=== PATIENT | female | born 1985 | race Caucasian/White ===

== ENCOUNTER 2017-12-04 18:33 | Inpatient (IN) | payer OTHER ==
[2017-12-04 19:31] LABS: Basophils # (A) 0.1 k/uL (0-0.2); Basophils % (A) 0 %; Eosinophils # (A) 0.2 k/uL (0-0.7); Eosinophils % (A) 2 %; HCT 38.3 % (34.0-46.0); HGB 12.9 gm/dL (11.4-16.0); Lymphocytes # (A) 2.1 k/uL (1.0-4.8); Lymphocytes % (A) 16 %; MCH 28.6 pg (25.0-35.0); MCHC 33.7 g/dL (31.0-37.0); MCV 84.8 fL (80.0-100.0); Mean Platelet Volume 7.8; Monocytes # (A) 0.8 k/uL (0-1.0); Monocytes % (A) 6 %; Neutrophils # (A) 9.8 k/uL (1.3-7.7); Neutrophils % (A) 74 %; Platelet Count 336 k/uL (150-450); RBC 4.51 m/uL (3.80-5.40); RDW 14.1 % (11.5-15.5); WBC 13.2 k/uL (3.8-10.6)
[2017-12-04 19:51] LABS: ALT 44 U/L (9-52); AST 35 U/L (14-36); Albumin 4.3 g/dL (3.5-5.0); Alkaline Phosphatase 90 U/L (38-126); Amylase 50 U/L (30-110); Anion Gap 11 mmol/L; Blood Urea Nitrogen 13 mg/dL (7-17); Calcium 9.9 mg/dL (8.4-10.2); Carbon Dioxide 29 mmol/L (22-30); Chloride 100 mmol/L (98-107); Glucose 90 mg/dL (74-99); Lipase 61 U/L (23-300); Potassium 4.1 mmol/L (3.5-5.1); Sodium 140 mmol/L (137-145); Total Bilirubin 0.6 mg/dL (0.2-1.3); Total Protein 7.8 g/dL (6.3-8.2)
[2017-12-04] MEDS ORDERED: ONDANSETRON 4 MG/2 ML VIAL IVP STA (20:16)
[2017-12-04] MEDS ORDERED: SODIUM CHLORIDE 0.9% 1,000 ML IV STA (20:16)
[2017-12-04] MEDS ORDERED: SODIUM CHLORIDE 0.9% 500 ML IV STA (20:16)
[2017-12-04] MEDS ORDERED: PANTOPRAZOLE 40 MG/10 ML VIAL IVP STA (20:16)
--- NOTE | 2017-12-04 20:23 | ED ---
General Adult HPI - General Source: patient, family, RN notes reviewed Mode of arrival: ambulatory Limitations: no limitations <William Reese - Last Filed: 12/04/17 21:44> <Zach Ordonez - Last Filed: 12/05/17 01:38> - General Chief complaint: Abdominal Pain Stated complaint: Stomach pain Time Seen by Provider: 12/04/17 20:02 - History of Present Illness Initial comments: Chief complaint and history of present illness is a 32-year-old female with complaint of pain started 3 days ago in the middle of her back, went up slightly but then came forward to epigastric region. Ongoing for 3 days similar now as it was before. Not significantly worse. She reports she had the same problem proximal to 5 months ago came in the middle of the night awakened her. It lasted 5 hours and went away. She does report she's had nausea and vomiting more dry heaves but no diarrhea. Patient denies any heavy lifting or injuries. Bending forward in palpating the epigastric region with increased discomfort. Denies change in color of stool or urine. (William Reese) - Related Data Home Medications Medication Instructions Recorded Confirmed Orphenadrine Citrate 100 mg PO BID PRN 12/04/17 12/04/17 Allergies Allergy/AdvReac Type Severity Reaction Status Date / Time No Known Allergies Allergy Verified 12/04/17 20:48 Review of Systems ROS Other: All systems not noted in ROS Statement are negative. <William Reese - Last Filed: 12/04/17 21:44> ROS Other: All systems not noted in ROS Statement are negative. <Zach Ordonez - Last Filed: 12/05/17 01:38> ROS Statement: Those systems with pertinent positive or pertinent negative responses have been documented in the HPI. review of systems no headache or visual acuity changes no neck pain, deep breathing causes discomfort in the epigastric region. Discomfort to the middle of the back but not with palpation. No rashes noted in that area. She had dry heaves nausea vomiting 2 days ago. Decreased appetite. No neuro deficits. All systems are reviewed. Past medical problems as noted above one similar episode 5 months ago lasting only 5 hours and then subsided without treatment or going to the doctor. The patient's surgeries include wisdom teeth only. Family history cancers include throat and skin. Patient denies ALLERGIES. Occasional cigarettes occasional alcohol but none lately. states she had a normal menstrual cycle last month does not think she is . (William Reese) Past Medical History Past Medical History: No Reported History History of Any Multi-Drug Resistant Organisms: None Reported Past Surgical History: No Surgical Hx Reported Past Psychological History: No Psychological Hx Reported Smoking Status: Current some day smoker Past Alcohol Use History: None Reported Past Drug Use History: None Reported <William Reese - Last Filed: 12/04/17 21:44> General Exam Limitations: no limitations <William Reese - Last Filed: 12/04/17 21:44> <Zach Ordonez - Last Filed: 12/05/17 01:38> - General Exam Comments Initial Comments: General: The patient is awake and alert, complains of epigastric pain and mild right upper quadrant pain with deep palpation across through to the back. Vital signs his temperature 99.0 pulse 94 respiratory rate 20 pulse ox 99% room air blood pressure 123/83 Eye: Pupils are equal, round and reactive to light, extra-ocular movements are intact ; there is normal conjunctiva bilaterally. No signs of icterus. Ears, nose, mouth and throat: There are moist mucous membranes and no oral lesions. Neck: The neck is supple, there is no tenderness , no anterior cervical lymphadenopathy, thyroid not enlarged. Cardiovascular: There is a regular rate and rhythm. No murmur, rub or gallop is appreciated. Respiratory: Lungs are clear to auscultation, respirations are non-labored, breath sounds are equal. No wheezes, stridor, rales, or rhonchi.deep breathing causes mild discomfort in the epigastric region. Gastrointestinal: Soft, non-distended, tender with palpation over the epigastric region mildly positive Croft sign with palpation during deep breathing to the right upper quadrant. No organomegaly.. There is no rebound or guarding present. no CVA tenderness but there is discomfort to the lower thoracic spine area but not with palpation of the spine.. Bowel sounds are unremarkable. Back: There is no tenderness to palpation in the midline. There is no obvious deformity. No rashes noted. Musculoskeletal: Normal ROM, no tenderness, Neurological: no complaints of weakness or dizziness no complaints of any neuro deficits. Skin: Skin is warm and dry and no rashes or lesions are noted. (William Reese) Vital Signs 03/03/1812/04/17 12/05/17 19:02 23:20 01:11 Temperature 99.0 F Pulse Rate 94 88 83 Respiratory 20 18 Rate Blood Pressure 123/83 109/69 130/80 O2 Sat by Pulse 99 98 99 Oximetry Medical Decision Making - Lab Data Result diagrams: 12/04/17 19:11 12/04/17 19:11 <William Reese - Last Filed: 12/04/17 21:44> - Lab Data Result diagrams: 12/04/17 19:11 12/04/17 19:11 <Zach Ordonez - Last Filed: 12/05/17 01:38> - Medical Decision Making Medical decision making; to 32-year-old female here with her family. The patient reports that for 3 days she's been having pain that started in her back lower thoracic and radiates through to the front. This happened one time before , 5 months ago but lasted only 5 hours. Patient's denying any injuries. This is associated with nausea vomiting but no diarrhea. Pain increased with palpation of the epigastric region.Labs show white count 13 hemoglobin 12.9 hematocrit 38. Potassium 4.1 with a BUN 13 creatinine 0.7 with a GFR greater than 60. Glucose 90. Amylase lipase normal. test negative. UA clean no signs of infection. we discussed a CT of the thoracic and abdominal aorta because of her symptoms of discomfort in the back coming through to the front and all labs being normal with no evidence of blood in the urine or any changes in the liver enzymes or amylase lipase. If the CT of the aorta the chest and abdomen is within normal limits and an ultrasound of the right upper quadrant will be requested. Final disposition by Dr. Ordonez (William Reese) - Lab Data Lab Results 12/04/17 12/04/17 12/04/17 Range/Units 19:11 19:11 20:15 WBC 13.2 H (3.8-10.6) k/uL RBC 4.51 (3.80-5.40) m/uL Hgb 12.9 (11.4-16.0) gm/dL Hct 38.3 (34.0-46.0) % MCV 84.8 (80.0-100.0) fL MCH 28.6 (25.0-35.0) pg MCHC 33.7 (31.0-37.0) g/dL RDW 14.1 (11.5-15.5) % Plt Count 336 (150-450) k/uL Neutrophils % 74 % Lymphocytes % 16 % Monocytes % 6 % Eosinophils % 2 % Basophils % 0 % Neutrophils # 9.8 H (1.3-7.7) k/uL Lymphocytes # 2.1 (1.0-4.8) k/uL Monocytes # 0.8 (0-1.0) k/uL Eosinophils # 0.2 (0-0.7) k/uL Basophils # 0.1 (0-0.2) k/uL Sodium 140 (137-145) mmol/L Potassium 4.1 (3.5-5.1) mmol/L Chloride 100 (98-107) mmol/L Carbon Dioxide 29 (22-30) mmol/L Anion Gap 11 mmol/L BUN 13 (7-17) mg/dL Creatinine 0.70 (0.52-1.04) mg/dL Est GFR (CKD-EPI)AfAm >90 (>60 ml/min/1.73 sqM) Est GFR (CKD-EPI)NonAf >90 (>60 ml/min/1.73 sqM) Glucose 90 (74-99) mg/dL Plasma Lactic Acid Benito (0.7-2.0) mmol/L Calcium 9.9 (8.4-10.2) mg/dL Total Bilirubin 0.6 (0.2-1.3) mg/dL AST 35 (14-36) U/L ALT 44 (9-52) U/L Alkaline Phosphatase 90 (38-126) U/L Total Protein 7.8 (6.3-8.2) g/dL Albumin 4.3 (3.5-5.0) g/dL Amylase 50 (30-110) U/L Lipase 61 (23-300) U/L Urine Color Colorless Urine Appearance Clear (Clear) Urine pH 5.5 (5.0-8.0) Ur Specific [place] 1.002 (1.001-1.035) Urine Protein Negative (Negative) Urine Glucose (UA) Negative (Negative) Urine Ketones Negative (Negative) Urine Blood Negative (Negative) Urine Nitrite Negative (Negative) Urine Bilirubin Negative (Negative) Urine Urobilinogen <2.0 (<2.0) mg/dL Ur Leukocyte Esterase Negative (Negative) Urine HCG, Qual (Not Detectd) 12/04/17 12/04/17 Range/Units 20:15 20:35 WBC (3.8-10.6) k/uL RBC (3.80-5.40) m/uL Hgb (11.4-16.0) gm/dL Hct (34.0-46.0) % MCV (80.0-100.0) fL MCH (25.0-35.0) pg MCHC (31.0-37.0) g/dL RDW (11.5-15.5) % Plt Count (150-450) k/uL Neutrophils % % Lymphocytes % % Monocytes % % Eosinophils % % Basophils % % Neutrophils # (1.3-7.7) k/uL Lymphocytes # (1.0-4.8) k/uL Monocytes # (0-1.0) k/uL Eosinophils # (0-0.7) k/uL Basophils # (0-0.2) k/uL Sodium (137-145) mmol/L Potassium (3.5-5.1) mmol/L Chloride (98-107) mmol/L Carbon Dioxide (22-30) mmol/L Anion Gap mmol/L BUN (7-17) mg/dL Creatinine (0.52-1.04) mg/dL Est GFR (CKD-EPI)AfAm (>60 ml/min/1.73 sqM) Est GFR (CKD-EPI)NonAf (>60 ml/min/1.73 sqM) Glucose (74-99) mg/dL Plasma Lactic Acid Benito 0.8 (0.7-2.0) mmol/L Calcium (8.4-10.2) mg/dL Total Bilirubin (0.2-1.3) mg/dL AST (14-36) U/L ALT (9-52) U/L Alkaline Phosphatase (38-126) U/L Total Protein (6.3-8.2) g/dL Albumin (3.5-5.0) g/dL Amylase (30-110) U/L Lipase (23-300) U/L Urine Color Urine Appearance (Clear) Urine pH (5.0-8.0) Ur Specific [place] (1.001-1.035) Urine Protein (Negative) Urine Glucose (UA) (Negative) Urine Ketones (Negative) Urine Blood (Negative) Urine Nitrite (Negative) Urine Bilirubin (Negative) Urine Urobilinogen (<2.0) mg/dL Ur Leukocyte Esterase (Negative) Urine HCG, Qual Not Detected (Not Detectd) Disposition <William Reese - Last Filed: 12/04/17 21:44> <Zach Ordonez - Last Filed: 12/05/17 01:38> Clinical Impression: Abdominal pain, Symptomatic cholelithiasis Disposition: ADMITTED IP TO THIS [facility] Condition: Fair Referrals: None,Stated [Primary Care Provider] - 1-2 days
[2017-12-04 20:29] LABS: Appearance,Urine Clear (Clear); Bilirubin,Urine Negative (Negative); Blood,Urine Negative (Negative); Color,Urine Colorless; Glucose,Urine (UA) Negative (Negative); Ketones,Urine Negative (Negative); Leukocyte Esterase,Urine Negative (Negative); PH, Urine 5.5 (5.0-8.0); Protein,Urine Negative (Negative); Specific Gravity,Urine 1.002 (1.001-1.035); Urobilinogen,Urine <2.0 mg/dL (<2.0)
[2017-12-04] MEDS ORDERED: RX INFO: IV CONTRAST WAS GIVEN 1 EACH MISC MISCELLANE PRN (21:38)
--- NOTE | 2017-12-04 22:10 | XR ---
EXAMINATION TYPE: XR abdomen 2V DATE OF EXAM: 12/04/2017 COMPARISON: NONE HISTORY: Back pain abdominal pain TECHNIQUE: 3 views FINDINGS: There is no sign of intestinal obstruction or pneumoperitoneum. Fecal pattern is normal. Th ere is no evidence of a mass. There are no pathologic calcifications over the kidneys. Lung bases are clear. There is no evidence of a mass. IMPRESSION: Nonacute abdomen.
[2017-12-04] MEDS ORDERED: MORPHINE SULFATE 4 MG/ML SYRINGE IV STA (23:00)
--- NOTE | 2017-12-04 23:05 | CT ---
EXAMINATION TYPE: CT angio thoracic/abd aorta DATE OF EXAM: 12/04/2017 COMPARISON: NONE HISTORY: Patient complains of back pain that to epigastric region. CT DLP: 1957 mGycm. Automated Exposure Control for Dose Reduction was Utilized. CONTRAST: CT scan of the thorax, abdomen and pelvis is performed with IV Contrast, patient injected with 100 mL of Omnipaque 350. FINDINGS: There are 3-D post processed images. The noncontrast images show no renal calculus. Gallbladder is large and measures 3.7 cm in diameter. The lungs are clear of infiltrate. There is no pleural effusion. There is no evidence of a pulmonary mass. There is no pericardial effusion. I see no filling defects in the pulmonary arteries. There is no evidence of thoracic aortic aneurysm or dissection. There is no mediastinal adenopathy. There are no hilar masses. spleen pancreas appear normal. Bile ducts are not dilated. Gallbladder is large. There is heterogeneous enhancement within the liver probably due to regional fatty infiltration. There is no adrenal mass. Kidneys show satisfactory contrast opacification. There is no hydronephrosi s. There is no retroperitoneal adenopathy. There is patency of the celiac artery and the superior mes enteric artery. There is bilateral renal artery patency. There is patency of the common internal and external iliac arteries. There is a small amount of free fluid in the cul-de-sac. Bladder distends sm oothly. Uterus is anteverted. I see no bony destructive process. There is no evidence of a pelvic mas s. There is a 2 cm cyst on the right ovary. The appendix is not enlarged. There is a 4 mm appendicoli th. CONCLUSION: Normal CT angiogram of the chest and abdomen. Inhomogeneous enhancement of the liver probably due to fatty infiltration in the posterior right lobe. Right ovarian cyst. Mild free fluid in the cul-de-sac could be physiologic. There is an appendicolith but no other evidence for appendicitis.
--- NOTE | 2017-12-05 00:41 | US ---
EXAMINATION TYPE: US abdomen limited DATE OF EXAM: 12/05/2017 COMPARISON: NONE CLINICAL HISTORY: Pain, attention RUQ. RUQ pain EXAM MEASUREMENTS: Liver Length: 13.8 cm Gallbladder Wall: 0.3 cm CBD: 0.7 cm Right Kidney: 9.6 x 4.1 x 3.9 cm Pancreas: Obscured by bowel gas Liver: Limited due to overlying bowel gas. Images taken appear wnl. Gallbladder: Gallstone seen in neck. Evidence for sonographic Croft's sign: No CBD: Dilated Right Kidney: No hydronephrosis or masses seen Gallstone seen in neck of gallbladder. CBD appears dilated. IMPRESSION: Large gallstone in the gallbladder neck. No dilated ducts. No focal liver defect. Gallbla dder is distended and this could relate to cholecystitis.
[2017-12-05] MEDS ORDERED: NALOXONE 0.4 MG/ML 1 ML VIAL IV PRN (01:35)
[2017-12-05] MEDS ORDERED: MORPHINE SULFATE 4 MG/ML SYRINGE IV PRN (01:35)
[2017-12-05] MEDS ORDERED: ONDANSETRON 4 MG/2 ML VIAL IVP PRN (01:35)
[2017-12-05] MEDS: CEFEPIME 2 GM in SODIUM CHLORIDE 0.9% 50 ML IVPB SCH ×2 (02:19→17:41)
[2017-12-05] MEDS: SODIUM CHLORIDE 0.9% 1,000 ML IV SCH ×3 (02:19→17:39)
[2017-12-05] MEDS: FAMOTIDINE 20 MG/2 ML VIAL IV SCH ×2 (02:20→17:41)
--- NOTE | 2017-12-05 11:26 | P.GSHP ---
History of Present Illness H&P Date: 12/05/17 Chief Complaint: Right upper quadrant pain 32-year-old female presented on the day of admission to the emergency room to be evaluated for upper thoracic chest pain radiating to the epigastric area with a nausea sensation onset Sunday. Patient stated that she did go to [place] emergency room on Sunday to be evaluated for these symptoms. Patient reports in the emergency room they did do abdominal x-rays patient was discharged home. 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 Patient stated that the symptoms initially started 3 days ago in the middle of her back it went up slightly in a radiated to the epigastric area. Patient reports that she had a similar episode 3 to 5 months ago where woke her up in the middle of the night. It lasted about 5 hours and went away on its own. She states this episode pain became more symptomatic came into the emergency room on the to be evaluated for the above-mentioned symptoms. Patient stated that it she bent forward did cause increased epigastric discomfort. Denies any change in the color of the urine or stool. CAT scan of the thorax and abdomen report reviewed [facility] and abdomen. The ultrasound of the abdomen obtained in the emergency room showed a large gallstone in the gallbladder neck. No dilated ducts. No focal liver defect. The gallbladder distended likely related to cholecystitis. Lipase and amylase not elevated liver enzymes were not elevated patient was admitted to the services of the attending. No significant past medical or surgical history - Review of Systems Comment: Essentially unremarkable except as mentioned in the present illness Past Medical History Past Medical History: No Reported History History of Any Multi-Drug Resistant Organisms: None Reported Past Surgical History: No Surgical Hx Reported Additional Past Surgical History / Comment(s): third molar removal. Past Anesthesia/Blood Transfusion Reactions: No Reported Reaction Past Psychological History: No Psychological Hx Reported Smoking Status: Light tobacco smoker Past Alcohol Use History: None Reported Past Drug Use History: None Reported - Past Family History Father Family Medical History: Myocardial Infarction (CT) Medications and Allergies Home Medications Medication Instructions Recorded Confirmed Type Orphenadrine Citrate 100 mg PO BID PRN 12/04/17 12/04/17 History Allergies Allergy/AdvReac Type Severity Reaction Status Date / Time No Known Allergies Allergy Verified 12/04/17 20:48 Surgical - Exam Vital Signs Temp Pulse Resp BP Pulse Ox 99.0 F 94 20 123/83 99 12/04/17 19:02 12/04/17 19:02 12/04/17 19:02 12/04/17 19:02 12/04/17 19:02 GENERAL APPEARANCE: 32-year-old female patient is alert, oriented, in no acute distress. VITAL SIGNS: Reviewed HEENT: Head is normocephalic and atraumatic. Pupils are equal and reactive. The nares are patent. Oropharynx is clear without lesions. NECK: Supple without lymphadenopathy. Traches midline. HEART: S1, S2. Regular rate and rhythm. No murmur noted denying chest pain LUNGS: No crackles or wheezes are heard. On room air no cough ABDOMEN: Soft, mild tenderness epigastric area nondistended with good bowel sounds. No peritoneal signs. No palpable organomegaly or masses. EXTREMITIES: Normal skin color and turgor. No cyanosis, rash, ulceration, clubbing or edema. Radial pedal pulses are 2/4 bilaterally. NEUROLOGICAL: No focal deficits. Strength and sensation are grossly intact. Results - Labs 12/04/17 19:11 12/04/17 19:11 Abnormal Lab Results - Last 24 Hours (Table) 12/04/17 Range/Units 19:11 WBC 13.2 H (3.8-10.6) k/uL Neutrophils # 9.8 H (1.3-7.7) k/uL Microbiology - Last 24 Hours (Table) 12/04/17 20:15 Urine Culture - Preliminary Urine,Voided Diabetes panel 12/04/17 Range/Units 19:11 Sodium 140 (137-145) mmol/L Potassium 4.1 (3.5-5.1) mmol/L Chloride 100 (98-107) mmol/L Carbon Dioxide 29 (22-30) mmol/L BUN 13 (7-17) mg/dL Creatinine 0.70 (0.52-1.04) mg/dL Glucose 90 (74-99) mg/dL Calcium 9.9 (8.4-10.2) mg/dL AST 35 (14-36) U/L ALT 44 (9-52) U/L Alkaline Phosphatase 90 (38-126) U/L Total Protein 7.8 (6.3-8.2) g/dL Albumin 4.3 (3.5-5.0) g/dL Calcium panel 12/04/17 Range/Units 19:11 Calcium 9.9 (8.4-10.2) mg/dL Albumin 4.3 (3.5-5.0) g/dL Pituitary panel 12/04/17 Range/Units 19:11 Sodium 140 (137-145) mmol/L Potassium 4.1 (3.5-5.1) mmol/L Chloride 100 (98-107) mmol/L Carbon Dioxide 29 (22-30) mmol/L BUN 13 (7-17) mg/dL Creatinine 0.70 (0.52-1.04) mg/dL Glucose 90 (74-99) mg/dL Calcium 9.9 (8.4-10.2) mg/dL Adrenal panel 12/04/17 Range/Units 19:11 Sodium 140 (137-145) mmol/L Potassium 4.1 (3.5-5.1) mmol/L Chloride 100 (98-107) mmol/L Carbon Dioxide 29 (22-30) mmol/L BUN 13 (7-17) mg/dL Creatinine 0.70 (0.52-1.04) mg/dL Glucose 90 (74-99) mg/dL Calcium 9.9 (8.4-10.2) mg/dL Total Bilirubin 0.6 (0.2-1.3) mg/dL AST 35 (14-36) U/L ALT 44 (9-52) U/L Alkaline Phosphatase 90 (38-126) U/L Total Protein 7.8 (6.3-8.2) g/dL Albumin 4.3 (3.5-5.0) g/dL Assessment and Plan Assessment: Impression Present on admission upper back thoracic pain radiating to epigastric region with a CT angiogram of the thoracic and abdominal aorta showing a normal CT angiogram Ultrasound of the abdomen report reviewed indicates large gallstone in neck of the gallbladder suspect due to acute cholecystitis present on admission right upper quadrant pain radiating to the epigastric area suspect due to acute cholecystitis Plan Nothing by mouth scheduled today for laparoscopic cholecystectomy Pain control IV fluid for hydration DVT and GI prophylaxis The above impression and plan of care have been discussed and directed by signing physician. Anne Egan nurse practitioner acting as scribe for signing physician.
[2017-12-05] MEDS ORDERED: IV FLUID CONTINUATION 1,000 ML IV ONE ×2 (12:39)
[2017-12-05] MEDS ORDERED: HEPARIN SODIUM,PORCINE 5,000 UNIT/ML 1 ML VIAL SQ ONE (14:37)
[2017-12-05] MEDS ORDERED: DEXAMETHASONE SOD PHOS (MDV) 100 MG/10 ML VIAL ONE (15:17)
[2017-12-05] MEDS ORDERED: KETOROLAC 30 MG/ML 1 ML VIAL ONE (15:17)
[2017-12-05] MEDS ORDERED: fentaNYL (PF) 50 MCG/ML 2 ML AMP ONE (15:17)
[2017-12-05] MEDS ORDERED: SUCCINYLCHOLINE CHLORIDE 100 MG/5 ML SYR IV ONE (15:17)
[2017-12-05] MEDS ORDERED: GLYCOPYRROLATE 0.2 MG/ML 2 ML VIAL ONE (15:17)
[2017-12-05] MEDS ORDERED: MIDAZOLAM 2 MG/2 ML VIAL ONE (15:17)
[2017-12-05] MEDS ORDERED: NEOSTIGMINE 1 MG/ML 10 ML VIAL ONE (15:17)
[2017-12-05] MEDS ORDERED: LIDOCAINE 1% INJ 10MG/ML (20 ML MDV) ONE (15:17)
[2017-12-05] MEDS ORDERED: PROPOFOL 10 MG/ML 20 ML VIAL IV ONE (15:17)
[2017-12-05] MEDS ORDERED: ROCURONIUM BROMIDE 10 MG/ML 10 ML VIAL IV ONE (15:17)
[2017-12-05] MEDS ORDERED: BUPIVACAINE (PF) 0.25% 30 ML VIAL SQ ONE (15:39)
--- NOTE | 2017-12-05 16:23 | P.OP ---
Date of Procedure: 12/05/17 Preoperative Diagnosis: Cholecystitis Postoperative Diagnosis: Acute gangrenous cholecystitis Procedure(s) Performed: Laparoscopic cholecystectomy Anesthesia: STEPHANIE Surgeon: Wayne Lopes Estimated Blood Loss (ml): 5 Pathology: other (Gallbladder) Condition: stable Disposition: PACU Description of Procedure: The patient was placed on the operating table. The patient received a general endotracheal tube anesthesia. The patients abdomen was prepped and draped in the usual sterile fashion. Through an infraumbilical stab incision, the fascia of the anterior abdominal wall was grasped with a pair of Kochers and then the Veress needle was placed in the peritoneal cavity. Position of the Veress needle was confirmed with positive drop test. The abdomen was then insufflated. After adequate insufflation, the 10 mm trocar was placed in the peritoneal cavity. Following this the laparoscope was placed in the peritoneal cavity. The patient was placed in the head-up, right side up position and then a 5 mm trocar was placed in the right lateral and right subcostal position under direct visualization. A 8 mm trocar was placed in the epigastric position. The gallbladder was grasped in the fundus and infundibulum. Traction on the gallbladder was placed in the lateral and the cephalad positions. The triangle of Calot was visualized.. The cystic duct was bluntly dissected until the union of the cystic duct and common bile duct was seen. The cystic duct was then divided and sealed with the Harmonic scissors. A PDS Endoloop was then placed throughout the cystic duct stump. The cystic artery divided and sealed with the Harmonic scissors. The gallbladder was then removed from the liver bed using Harmonic scissors. The gallbladder was then extracted through the epigastric port site. Operative field was checked for any bleeding spots and Harmonic scissors was used to coagulate the liver bed. The abdomen was irrigated. The trocars were removed. The skin was closed using interrupted 3-0 Vicryl suture. Dermabond dressing were applied. The patient tolerated the procedure well.
[2017-12-05] MEDS ORDERED: HYDROcodone/APAP 7.5-325MG 1 EACH TAB PO PRN (18:11)
[2017-12-05 19:00] VITALS: RESP 18
[2017-12-06] MEDS: CEFEPIME 2 GM in SODIUM CHLORIDE 0.9% 50 ML IVPB SCH (04:06)
[2017-12-06] MEDS: FAMOTIDINE 20 MG/2 ML VIAL IV SCH (04:06)
[2017-12-06] MEDS: SODIUM CHLORIDE 0.9% 1,000 ML IV SCH (05:50)
[2017-12-06 07:23] LABS: Basophils % (A) 0 %; Eosinophils % (A) 0 %; HCT 31.9 % (34.0-46.0); HGB 10.3 gm/dL (11.4-16.0); Lymphocytes # (A) 1.1 k/uL (1.0-4.8); Lymphocytes % (A) 10 %; MCH 27.8 pg (25.0-35.0); MCHC 32.3 g/dL (31.0-37.0); MCV 86.1 fL (80.0-100.0); Mean Platelet Volume 7.7; Monocytes # (A) 0.5 k/uL (0-1.0); Monocytes % (A) 5 %; Neutrophils # (A) 9.1 k/uL (1.3-7.7); Neutrophils % (A) 84 %; Platelet Count 281 k/uL (150-450); RDW 13.8 % (11.5-15.5); WBC 10.7 k/uL (3.8-10.6)
[2017-12-06 07:34] LABS: ALT 94 U/L (9-52); AST 80 U/L (14-36); Albumin 3.1 g/dL (3.5-5.0); Alkaline Phosphatase 117 U/L (38-126); Anion Gap 8 mmol/L; Blood Urea Nitrogen 10 mg/dL (7-17); Calcium 8.4 mg/dL (8.4-10.2); Carbon Dioxide 25 mmol/L (22-30); Chloride 106 mmol/L (98-107); Glucose 102 mg/dL (74-99); Potassium 4.2 mmol/L (3.5-5.1); Sodium 139 mmol/L (137-145); Total Bilirubin 0.7 mg/dL (0.2-1.3); Total Protein 5.9 g/dL (6.3-8.2)
[2017-12-06 07:56] VITALS: BP 105/74; PULSE 77; TEMP 98.8
[2017-12-06] MEDS ORDERED: IBUPROFEN 400 MG TAB PO PRN (11:28)
--- NOTE | 2017-12-06 11:46 | P.DS ---
Providers Date of admission: 12/05/17 01:35 Expected date of discharge: 12/06/17 Attending physician: Wayne Lopes Primary care physician: Stated None Hospital Course: 32-year-old female presented on the day of admission to the emergency room to be evaluated for upper thoracic chest pain radiating to the epigastric area with a nausea sensation onset Sunday. Patient stated that she did go to [facility] emergency room on Sunday to be evaluated for these symptoms. Patient reports in the emergency room they did do abdominal x-rays patient was discharged home. 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 Patient stated that the symptoms initially started 3 days ago in the middle of her back it went up slightly in a radiated to the epigastric area. Patient reports that she had a similar episode 3 to 5 months ago where woke her up in the middle of the night. It lasted about 5 hours and went away on its own. She states this episode pain became more symptomatic came into the emergency room on the to be evaluated for the above-mentioned symptoms. Patient stated that it she bent forward did cause increased epigastric discomfort. Denies any change in the color of the urine or stool. CAT scan of the thorax and abdomen report reviewed indicated a normal CT [facility] of the chest and abdomen. The ultrasound of the abdomen obtained in the emergency room showed a large gallstone in the gallbladder neck. No dilated ducts. No focal liver defect. The gallbladder distended likely related to cholecystitis. Lipase and amylase not elevated liver enzymes were not elevated patient was admitted to the services of the attending. Patient underwent laparoscopic cholecystectomy for an acute gangrenous cholecystitis on December 05. Impression Present on admission upper back thoracic pain radiating to epigastric region with a CT angiogram of the thoracic and abdominal aorta showing a normal CT angiogram Ultrasound of the abdomen report reviewed indicates large gallstone in neck of the gallbladder suspect due to acute cholecystitis present on admission right upper quadrant pain radiating to the epigastric area suspect due to acute cholecystitis Postop December 05 laparoscopic cholecystectomy for acute gangrenous cholecystitis The above impression and plan of care have been discussed and directed by signing physician. Anne Egan nurse practitioner acting as scribe for signing physician. Patient Condition at Discharge: Fair Plan - Discharge Summary Discharge Rx Participant: Yes New Discharge Prescriptions: No Action Orphenadrine Citrate 100 mg PO BID PRN PRN Reason: Muscle Spasm Discharge Medication List Orphenadrine Citrate 100 mg PO BID PRN 12/04/17 [History] Follow up Appointment(s)/Referral(s): None,Stated [Primary Care Provider] - 1-2 days Wayne Lopes MD [STAFF PHYSICIAN] - 12/13/17 3:00 pm Activity/Diet/Wound Care/Special Instructions: No tub bath for six weeks. Shower daily. No lifting over 4 pounds for the next 6 weeks. May use ice packs to surgical site. No driving while taking narcotic for pain. Discharge Disposition: HOME SELF-CARE
== END 2017-12-06 12:30 | disposition home or self-care (01) | DRG 419 ==
LOC: EC 18:33 → 6PED 12-05 01:35
PROVIDERS: ADMIT Surgery; ATTEND Surgery
PROC: 0FT44ZZ Resection of Gallbladder, Percutaneous Endoscopic Approach (ICD-10-PCS; principal; 2017-12-05 09:25)
DX: K80.00 Calculus of gallbladder with acute cholecystitis without obstruction (principal); F17.210 Nicotine dependence, cigarettes, uncomplicated
CPT/HCPCS: 36415; 71275; 74019; 75635; 76705; 80053; 81003; 81025; 82150; 83605; 83690; 85025; 87086; 88304; 96361; 96374; 96375; 99285

== ENCOUNTER → 2018-01-15 | Outpatient (CLI) | payer OTHER, BC ==
--- NOTE | 2018-01-15 10:59 | XR ---
EXAMINATION TYPE: XR ankle complete LT DATE OF EXAM: 01/15/2018 CLINICAL HISTORY: Sprain injury August with persistent medial pain. TECHNIQUE: Frontal, lateral and oblique images of the left ankle are obtained. COMPARISON: None. FINDINGS: There is no acute fracture/dislocation evident in the left ankle. The ankle mortise appea rs within normal limits. The overlying soft tissue appears unremarkable. IMPRESSION: There is no acute fracture or dislocation in the left ankle.
--- NOTE | 2018-01-15 11:00 | XR ---
EXAMINATION TYPE: XR chest 2V DATE OF EXAM: 01/15/2018 COMPARISON: CTA aorta December 04, 2017. HISTORY: Chest pain per order. TECHNIQUE: Frontal and lateral views of the chest are obtained. FINDINGS: There is no focal air space opacity, pleural effusion, or pneumothorax seen. The cardiac silhouette size is mildly enlarged currently. The osseous structures are intact. IMPRESSION: Mild cardiomegaly without acute pulmonary process.
== END | disposition home or self-care (01) ==
LOC: RADXRMAIN 10:15
PROVIDERS: ATTEND Family Medicine
DX: I51.7 Cardiomegaly (principal); M25.572 Pain in left ankle and joints of left foot
CPT/HCPCS: 71046

== ENCOUNTER 2018-07-12 19:33 | Emergency (ER) | payer BC, OTHER ==
[2018-07-12] MEDS ORDERED: methylPREDNISolone SOD SUCCI 125 MG/2 ML VIAL IM ONE (20:17)
[2018-07-12] MEDS ORDERED: FAMOTIDINE 20 MG TAB PO STA (20:17)
[2018-07-12 20:44] LABS: Appearance,Urine Clear (Clear); Bilirubin,Urine Negative (Negative); Blood,Urine Negative (Negative); Color,Urine Light Yellow; Glucose,Urine (UA) Negative (Negative); Ketones,Urine Negative (Negative); Leukocyte Esterase,Urine Negative (Negative); Nitrite,Urine Negative (Negative); PH, Urine 5.5 (5.0-8.0); Protein,Urine Negative (Negative); Specific Gravity,Urine 1.007 (1.001-1.035); Urobilinogen,Urine <2.0 mg/dL (<2.0)
--- NOTE | 2018-07-12 20:58 | ED ---
Skin/Abscess/FB HPI - General Chief complaint: Skin/Abscess/Foreign Body Stated complaint: rash Time Seen by Provider: 07/12/18 20:05 Source: patient, RN notes reviewed, old records reviewed Mode of arrival: ambulatory Limitations: no limitations - History of Present Illness Initial comments: 32 year old with 2 days of sporadic rash that is pruritic over multiple areas of her body. Patient reports she will have the rash over her arm, then it goes away, later coming [facility] somewhere else. Denies new exposures. Denies fevers, chills, or other symptoms. Patient reports that she went to [facility], advised her to take benadryl, it goes away for a few hours and then returns. - Related Data Home Medications Medication Instructions Recorded Confirmed diphenhydrAMINE HCL [Benadryl] 25 - 50 mg PO Q6H PRN 07/12/18 07/12/18 Previous Rx's Medication Instructions Recorded Famotidine [Pepcid] 20 mg PO BID #20 tablet 07/12/18 predniSONE 10 mg PO DAILY #15 tab 07/12/18 Allergies Allergy/AdvReac Type Severity Reaction Status Date / Time No Known Allergies Allergy Verified 07/12/18 20:04 Review of Systems ROS Statement: Those systems with pertinent positive or pertinent negative responses have been documented in the HPI. ROS Other: All systems not noted in ROS Statement are negative. Past Medical History Past Medical History: No Reported History History of Any Multi-Drug Resistant Organisms: None Reported Past Surgical History: No Surgical Hx Reported, Cholecystectomy Additional Past Surgical History / Comment(s): third molar removal. Past Anesthesia/Blood Transfusion Reactions: No Reported Reaction Past Psychological History: No Psychological Hx Reported Smoking Status: Light tobacco smoker Past Alcohol Use History: None Reported Past Drug Use History: None Reported - Past Family History Father Family Medical History: Myocardial Infarction ([place]) General Exam - General Exam Comments Initial Comments: 32 year old female, no acute distress. Limitations: no limitations General appearance: alert, in no apparent distress Head exam: Present: atraumatic, normocephalic, normal inspection Eye exam: Present: normal appearance, PERRL, EOMI. Absent: scleral icterus, conjunctival injection, periorbital swelling ENT exam: Present: normal exam, mucous membranes moist Neck exam: Present: normal inspection. Absent: tenderness, meningismus, lymphadenopathy Respiratory exam: Present: normal lung sounds bilaterally. Absent: respiratory distress, wheezes, rales, rhonchi, stridor Cardiovascular Exam: Present: regular rate, normal rhythm, normal heart sounds. Absent: systolic murmur, diastolic murmur, rubs, gallop, clicks Extremities exam: Present: normal inspection, full ROM, normal capillary refill. Absent: tenderness, pedal edema, joint swelling, calf tenderness Back exam: Present: normal inspection Neurological exam: Present: alert, oriented X3, CN II-XII intact Psychiatric exam: Present: normal affect, normal mood Expanded Distribution of rash: generalized Description of rash: Present: macular, purpuic, urticarial 1 - Sporadic urticaria 2 - urticaria 3 - uriticara 4 - Uriticaria Course Vital Signs 07/12/18 07/12/18 19:40 21:08 Temperature 98.4 F 98 F Pulse Rate 113 H 96 Respiratory 20 18 Rate Blood Pressure 125/80 115/72 O2 Sat by Pulse 98 98 Oximetry Medical Decision Making - Medical Decision Making 32 year old female with sporadic urticarial rash. No new exposures. Patient at this time given IM solumedrol. Discussed using antihistamine, pepcid, and steriods. Discussed follow up with PCP. Return parameters discussed. - Lab Data Lab Results 07/12/18 07/12/18 Range/Units 20:20 20:20 Urine Color Light Yellow Urine Appearance Clear (Clear) Urine pH 5.5 (5.0-8.0) Ur Specific [place] 1.007 (1.001-1.035) Urine Protein Negative (Negative) Urine Glucose (UA) Negative (Negative) Urine Ketones Negative (Negative) Urine Blood Negative (Negative) Urine Nitrite Negative (Negative) Urine Bilirubin Negative (Negative) Urine Urobilinogen <2.0 (<2.0) mg/dL Ur Leukocyte Esterase Negative (Negative) Urine HCG, Qual Not Detected (Not Detectd) Disposition Clinical Impression: Urticaria Disposition: HOME SELF-CARE Condition: Good Instructions: Urticaria (ED) Additional Instructions: Patient advised to follow-up with primary care physician. Return to emergency department if any alarming signs or symptoms occur. Take medication as prescribed. Do not do hot baths. Prescriptions: Famotidine [Pepcid] 20 mg PO BID #20 tablet predniSONE 10 mg PO DAILY #15 tab Is patient prescribed a controlled substance at d/c from ED?: No Referrals: None,Stated [Primary Care Provider] - 1-2 days Zamzam Dumont MD [STAFF PHYSICIAN] - 1-2 days Dallas Gordon MD [REFERRING] - 1-2 days Stevie Wharton MD [STAFF PHYSICIAN] - 1-2 days Time of Disposition: 20:55
[2018-07-12 21:10] VITALS: BP 115/72; PULSE 96; RESP 18; TEMP 98
== END 2018-07-12 21:09 | disposition home or self-care (01) ==
LOC: EC 19:33
DX: L50.9 Urticaria, unspecified (principal); F17.200 Nicotine dependence, unspecified, uncomplicated
CPT/HCPCS: 81003; 81025; 99283; 96372; J2930

== ENCOUNTER 2022-04-23 19:00 | Emergency (ER) | payer BC ==
[2022-04-23 19:04] VITALS: BP 114/79; PULSE 70; RESP 16; TEMP 98.3
--- NOTE | 2022-04-23 19:53 | ED ---
General Adult HPI - General Chief complaint: Animal Bite Stated complaint: dog bite Time Seen by Provider: 04/23/22 19:19 Source: patient, RN notes reviewed Mode of arrival: ambulatory Limitations: no limitations - History of Present Illness Initial comments: 36-year-old female presents to the emergency department requesting a repeat shot. Patient states she was bit by a dog yesterday while camping and the dog's experimental machinist was unable to provide documentation that the past had been vaccinated. Patient states she was at urgent care prior to arrival and did receive a prescription for antibiotics which she did fill. Also received a tetanus shot at that time. States she was advised by urgent care and her PCP to come to the emergency department for the rabies vaccine. Denies any other injuries or concerns at this time. - Related Data Home Medications Medication Instructions Recorded Confirmed diphenhydrAMINE HCL [Benadryl] 25 - 50 mg PO Q6H PRN 07/12/18 07/12/18 Previous Rx's Medication Instructions Recorded Famotidine [Pepcid] 20 mg PO BID #20 tablet 07/12/18 predniSONE 10 mg PO DAILY #15 tab 07/12/18 Allergies Allergy/AdvReac Type Severity Reaction Status Date / Time No Known Allergies Allergy Verified 04/23/22 19:04 Review of Systems ROS Statement: Those systems with pertinent positive or pertinent negative responses have been documented in the HPI. ROS Other: All systems not noted in ROS Statement are negative. Past Medical History Past Medical History: No Reported History History of Any Multi-Drug Resistant Organisms: None Reported Past Surgical History: No Surgical Hx Reported, Cholecystectomy Additional Past Surgical History / Comment(s): third molar removal. Past Anesthesia/Blood Transfusion Reactions: No Reported Reaction Past Psychological History: No Psychological Hx Reported Smoking Status: Never smoker Past Alcohol Use History: None Reported Past Drug Use History: None Reported - Past Family History Father Family Medical History: Myocardial Infarction ([place]) General Exam Limitations: no limitations (Well-developed, well-nourished female in no acute distress. Initial temperature 98.3, pulse 70, respirations 16, blood pressure 114/79, pulse ox 96% on room air.) General appearance: alert, in no apparent distress Head exam: Present: atraumatic, normocephalic, normal inspection Left Shoulder Exam: Present: normal inspection Upper Arm exam: Present: full ROM, ecchymosis (large ecchymotic area), other (linear wound that has dried blood on the surface. states the wound was cared for at urgent care and patient provides appropriate antibiotic prescription ) Neurological exam: Present: alert, oriented X3, normal gait Psychiatric exam: Present: anxious Course Vital Signs 04/23/22 19:01 Temperature 98.3 F Pulse Rate 70 Respiratory 16 Rate Blood Pressure 114/79 O2 Sat by Pulse 96 Oximetry - Reevaluation(s) Reevaluation #1: 04/23/22 19:45 During initial assessment, patient became upset stating "everyone is treating me like I shouldn't be here." Attempted to explain process of initiating Rabies vaccines and immunoglobuin along with subsequent injection days. Tried gently discussing associated cost and patient got up and left. I offered to write prescription for vaccine series, but patient declined and walked out. This patient's care was discussed with my attending, Dr. Mcfarlane. Medical Decision Making - Medical Decision Making This is an anxious 36-year-old female who presents to the emergency department requesting a rabies vaccine for injury sustained in a dog bite. Unfortunately, during exam, patient left stating as though she felt that she was unwelcome. Physical exam was incomplete however I was able to visualize appropriate prescription for antibiotic. Did discuss rabies vaccine series. Patient states she is unable to return on day 3 as she will be out of town. Explained that this is a regimented protocol and that the risk is hers to assume. Patient was bit by a domestic dog, but the owners were unable to provide proof of vaccines. The associated risk is minimal, but patient was advised to seek rabies treatment from urgent care provider and PCP. Given that patient left without further assessment, I did not initiate treatment nor provide her with the follow up care paperwork. Attending: Maeve. Disposition Clinical Impression: Bite by animal Disposition: Left Against Medical Advice Condition: Stable Instructions (If sedation given, give patient instructions): Animal Bite (ED) Is patient prescribed a controlled substance at d/c from ED?: No Referrals: William Pavon DO [Primary Care Provider] - 1-2 days
== END 2022-04-23 20:44 | disposition left against medical advice (07) ==
LOC: EC 19:00
DX: S41.152A Open bite of left upper arm, initial encounter (principal); W54.0XXA Bitten by dog, initial encounter; Z53.29 Procedure and treatment not carried out because of patient's decision for other reasons
CPT/HCPCS: 99281